=== PATIENT | male | born 1975 | race Caucasian/White ===

== ENCOUNTER 2018-06-03 07:21 | Emergency (ER) | payer OTHER ==
[2018-06-03 07:32] VITALS: RESP 18
[2018-06-03] MEDS ORDERED: HYDROmorphone 1 MG/ML 1 ML SYRINGE IVP STA (07:46)
[2018-06-03] MEDS ORDERED: SODIUM CHLORIDE 0.9% 1,000 ML IV STA (07:46)
[2018-06-03] MEDS ORDERED: ONDANSETRON 4 MG/2 ML VIAL IVP STA (07:46)
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
[2018-06-03 08:17] LABS: Basophils # (A) 0.1 k/uL (0-0.2); Basophils % (A) 1 %; Eosinophils # (A) 0.1 k/uL (0-0.7); Eosinophils % (A) 2 %; HGB 15.1 gm/dL (13.0-17.5); Lymphocytes # (A) 1.6 k/uL (1.0-4.8); Lymphocytes % (A) 19 %; MCH 30.2 pg (25.0-35.0); MCHC 32.9 g/dL (31.0-37.0); MCV 91.8 fL (80.0-100.0); Mean Platelet Volume 8.3; Monocytes # (A) 0.3 k/uL (0-1.0); Monocytes % (A) 4 %; Neutrophils % (A) 74 %; Platelet Count 134 k/uL (150-450); RBC 5.01 m/uL (4.30-5.90); RDW 13.5 % (11.5-15.5)
[2018-06-03 08:20] LABS: Appearance,Urine Clear (Clear); Bilirubin,Urine Negative (Negative); Blood,Urine Negative (Negative); Color,Urine Yellow; Glucose,Urine (UA) Negative (Negative); Ketones,Urine Negative (Negative); Leukocyte Esterase,Urine Negative (Negative); Nitrite,Urine Negative (Negative); Protein,Urine Trace (Negative); Specific Gravity,Urine 1.011 (1.001-1.035); Urobilinogen,Urine <2.0 mg/dL (<2.0)
[2018-06-03 08:26] LABS: INR 1.1 (<1.2); Partial Thromboplastin Time 24.6 sec (22.0-30.0); Prothrombin Time 10.7 sec (9.0-12.0)
[2018-06-03 08:41] LABS: ALT 33 U/L (21-72); AST 23 U/L (17-59); Albumin 4.2 g/dL (3.5-5.0); Alcohol <10 mg/dL; Alkaline Phosphatase 96 U/L (38-126); Anion Gap 8 mmol/L; Blood Urea Nitrogen 14 mg/dL (9-20); Calcium 9.3 mg/dL (8.4-10.2); Carbon Dioxide 25 mmol/L (22-30); Chloride 107 mmol/L (98-107); Glucose 126 mg/dL (74-99); Potassium 3.6 mmol/L (3.5-5.1); Sodium 140 mmol/L (137-145); Total Bilirubin 0.7 mg/dL (0.2-1.3); Total Protein 6.9 g/dL (6.3-8.2)
[2018-06-03 08:48] LABS: Amphetamine Screen,Urine Not Detected (NotDetected); Barbiturate Screen,Urine Not Detected (NotDetected); Benzodiazepines Screen,Urine Not Detected (NotDetected); Cocaine Screen,Urine Not Detected (NotDetected); Methadone Screen, Urine Not Detected (NotDetected); Opiate Screen,Urine Not Detected (NotDetected); Oxycodone Screen, Urine Not Detected (NotDetected); Phencyclidine Screen,Urine Not Detected (NotDetected); Tricyclic Antidepressant,Urine Not Detected (NotDetected); Urn Cannabinoid Scrn Not Detected (NotDetected)
[2018-06-03 09:01] LABS: Creatine Kinase MB 1.1 ng/mL (0.0-2.4); Troponin I 0.02 ng/mL (0.000-0.034)
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
[2018-06-03] MEDS ORDERED: LABETALOL 5 MG/ML VIAL MDV IVP STA ×2 (09:43→10:25)
[2018-06-03] MEDS ORDERED: KETOROLAC 60 MG/2 ML VIAL IVP STA (09:43)
[2018-06-03 10:41] VITALS: BP 154/106; PULSE 77; TEMP 98
== END 2018-06-03 10:47 | disposition home or self-care (01) ==
LOC: EC 07:21
DX: S20.212A Contusion of left front wall of thorax, initial encounter (principal); R10.12 Left upper quadrant pain; R10.32 Left lower quadrant pain; F17.200 Nicotine dependence, unspecified, uncomplicated; Z86.14 Personal history of Methicillin resistant Staphylococcus aureus infection; Z88.6 Allergy status to analgesic agent; Z88.8 Allergy status to other drugs, medicaments and biological substances; Z90.49 Acquired absence of other specified parts of digestive tract; V09.9XXA Pedestrian injured in unspecified transport accident, initial encounter; Y99.0 Civilian activity done for income or pay
CPT/HCPCS: 36415; 93005; 86900; 86901; 80053; 82550; 82553; 84484; 85025; 85610; 85730; 86850; 81003; 80306; 80320; 71260; 74177; 99284; 96374; 96375 ×3; 96376; 96361; J2405; J1885; J1170; Q9967

== ENCOUNTER → 2018-06-09 | Outpatient (CLI) | payer OTHER ==
--- NOTE | 2018-06-09 16:04 | XR ---
EXAMINATION TYPE: XR chest 2V DATE OF EXAM: 06/09/2018 COMPARISON: CT chest 06/03/2018 HISTORY: Cough, smoker TECHNIQUE: Frontal and lateral views of the chest are obtained. FINDINGS: There is no focal air space opacity, pleural effusion, or pneumothorax seen. The cardiac silhouette size is within normal limits. There is bronchial wall thickening. The osseous structures are intact. IMPRESSION: Correlate for bronchitis, reactive airways disease. Follow-up as indicated.
== END | disposition home or self-care (01) ==
LOC: RADXRMAIN 14:42
PROVIDERS: ATTEND Emergency Medicine
DX: S20.20XD Contusion of thorax, unspecified, subsequent encounter (principal)
CPT/HCPCS: 71046

== ENCOUNTER 2018-09-20 18:38 | Inpatient (IN) | payer OTHER ==
[2018-09-20] MEDS ORDERED: SODIUM CHLORIDE 0.9% 1,000 ML IV STA (19:05)
[2018-09-20] MEDS ORDERED: MORPHINE SULFATE 4 MG/ML SYRINGE IV STA (19:05)
[2018-09-20] MEDS ORDERED: ONDANSETRON 4 MG/2 ML VIAL IVP STA (19:05)
[2018-09-20] MEDS ORDERED: LABETALOL 5 MG/ML VIAL MDV IVP STA ×2 (19:06→20:03)
--- NOTE | 2018-09-20 19:09 | ED ---
General Adult HPI - General Source: patient, RN notes reviewed Mode of arrival: ambulatory Limitations: no limitations <Javier Farmer - Last Filed: 09/20/18 20:03> <Pete Gonzalez - Last Filed: 09/20/18 23:00> - General Chief complaint: Headache Stated complaint: hypertension Time Seen by Provider: 09/20/18 18:58 - History of Present Illness Initial comments: Patient is a 43-year-old male presents to the emergency room today with a chief complaint of a headache. Patient states that 6 days ago he was trying to climb into his truck when he slipped hitting his head causing a laceration to his forehead. Patient does admit that he had 8 stitches. He did go to urgent care. He does admit that his blood pressure was elevated that today. He was going back to have stitches removed today. He states is told his blood pressure was elevated again. He's been experiencing headaches since the fall. He describes it as a squeezing sensation located to the front of his head. Currently rates it a 9/10. Patient does admit that he tried aspirin Tylenol at home with little relief of symptoms. Does admit that he's been feeling nauseated over the last 5 days. Patient does admit to photosensitivity. Patient denies any other complaints. Denies any history of hypertension. Patient denies any recent fever, chills, shortness of breath, chest pain, back pain, abdominal pain, vomiting, numbness or tingling, or any other complaints. ( Javier Farmer) - Related Data Home Medications Medication Instructions Recorded Confirmed No Known Home Medications 09/20/18 09/20/18 Allergies Allergy/AdvReac Type Severity Reaction Status Date / Time miconazole Allergy Unknown Verified 09/20/18 18:58 [From Neosporin AF] phenobarbital Allergy Unknown Verified 09/20/18 18:58 phenytoin Allergy Anaphylaxis Verified 09/20/18 18:58 [From Dilantin Extended] ibuprofen AdvReac Abdominal Verified 09/20/18 18:58 Pain SUPER GLUE Allergy Rash/Hives Uncoded 09/20/18 18:58 Review of Systems ROS Other: All systems not noted in ROS Statement are negative. <Javier Farmer - Last Filed: 09/20/18 20:03> ROS Other: All systems not noted in ROS Statement are negative. <Pete Gonzalez - Last Filed: 09/20/18 23:00> ROS Statement: Those systems with pertinent positive or pertinent negative responses have been documented in the HPI. Past Medical History Past Medical History: Hypertension History of Any Multi-Drug Resistant Organisms: MRSA Date of last positivie culture/infection: 2005 MDRO Source:: Right ankle Past Surgical History: Cholecystectomy, Orthopedic Surgery Past Psychological History: No Psychological Hx Reported Smoking Status: Current every day smoker Past Alcohol Use History: Occasional Past Drug Use History: None Reported <Javier Farmer - Last Filed: 09/20/18 20:03> General Exam Limitations: no limitations <Javier Farmer - Last Filed: 09/20/18 20:03> <Pete Gonzalez - Last Filed: 09/20/18 23:00> - General Exam Comments Initial Comments: General: The patient is awake and alert, in no distress, and does not appear acutely ill. Eye: Pupils are equal, round and reactive to light, extra-ocular movements are intact. No nystagmus. There is normal conjunctiva bilaterally. No signs of icterus. Ears, nose, mouth and throat: There are moist mucous membranes and no oral lesions. Neck: The neck is supple. Cardiovascular: There is a regular rate and rhythm. No murmur, rub or gallop is appreciated. Respiratory: Lungs are clear to auscultation, respirations are non-labored, breath sounds are equal. No wheezes, stridor, rales, or rhonchi. Musculoskeletal: Normal ROM, no tenderness. Strength 5/5. Sensation intact. Radial pulses equal bilaterally 2+. Neurological: A&O x 3. CN II-XII intact, There are no obvious motor or sensory deficits. Coordination appears grossly intact. Speech is normal. Skin: Skin is warm and dry and no rashes or lesions are noted. Psychiatric: Cooperative, appropriate mood & affect, normal judgment. (Javier Famrer) Course <Javier Farmer - Last Filed: 09/20/18 20:03> <Pete Gonzalez - Last Filed: 09/20/18 23:00> Vital Signs 09/20/18 09/20/18 09/20/18 18:47 19:51 20:17 Temperature 97.5 F L Pulse Rate 73 67 70 Respiratory 20 17 18 Rate Blood Pressure 216/147 175/115 182/120 O2 Sat by Pulse 98 96 98 Oximetry 09/20/18 09/20/18 09/20/18 20:40 21:53 22:38 Temperature Pulse Rate 79 77 87 Respiratory 18 16 18 Rate Blood Pressure 177/115 173/110 162/101 O2 Sat by Pulse 98 96 97 Oximetry - Reevaluation(s) Reevaluation #1: 09/20/18 20:03 Patient reexamined at this time does admit that headache is improving here in the emergency room. Blood pressure has improved currently 175/115. Patient's CT the head and neck negative for any acute abnormality. Patient's labs been reviewed. Her shins blood pressure be continued to be monitored closely. (Javier Farmer) Medical Decision Making - Lab Data Result diagrams: 09/20/18 19:10 09/20/18 19:10 <Javier Farmer - Last Filed: 09/20/18 20:03> - Lab Data Result diagrams: 09/20/18 19:10 09/20/18 19:10 <Pete Gonzalez - Last Filed: 09/20/18 23:00> - Medical Decision Making patient signed out to me by PA. patient being seen for headache and hypertension. he has no known history of hypertension. labs reviewed, no acute process. Ct head unremarkable. on re-evaluation patient with only minimal improvement of his headache. at this time, will add TSH and troponin onto his lab work. will give reglan, benadryl, decadron, and tylenol for headache. advised observation for the patient for uncontrolled HTN and headache. patient agreeable. he was given hydralazine as his BP is still elevated at 180 systolic after 40mg IV labetalol total. 10:48 PM On reevaluation, the patient states that his headache is best improvement of her headache cocktail. He is still hypertensive at 170/108. Further laboratory evaluation shows evidence of hyperthyroidism. When questioned further, the patient admits to heat intolerance, weight loss, diarrhea. Case discussed with Dr. Brambila who accepts admission for further evaluation of headache and hyperthyroidism. patient agreeable with care plan. (Pete Gonzalez) - Lab Data Lab Results 09/20/18 09/20/18 09/20/18 Range/Units 19:10 19:10 19:10 WBC 10.0 (3.8-10.6) k/uL RBC 5.61 (4.30-5.90) m/uL Hgb 17.0 (13.0-17.5) gm/dL Hct 50.5 (39.0-53.0) % MCV 90.1 (80.0-100.0) fL MCH 30.3 (25.0-35.0) pg MCHC 33.6 (31.0-37.0) g/dL RDW 13.3 (11.5-15.5) % Plt Count 193 (150-450) k/uL Neutrophils % 67 % Lymphocytes % 25 % Monocytes % 4 % Eosinophils % 2 % Basophils % 1 % Neutrophils # 6.7 (1.3-7.7) k/uL Lymphocytes # 2.5 (1.0-4.8) k/uL Monocytes # 0.4 (0-1.0) k/uL Eosinophils # 0.2 (0-0.7) k/uL Basophils # 0.1 (0-0.2) k/uL Sodium 143 (137-145) mmol/L Potassium 4.3 (3.5-5.1) mmol/L Chloride 108 H (98-107) mmol/L Carbon Dioxide 27 (22-30) mmol/L Anion Gap 8 mmol/L BUN 14 (9-20) mg/dL Creatinine 0.86 (0.66-1.25) mg/dL Est GFR (CKD-EPI)AfAm >90 (>60 ml/min/1.73 sqM) Est GFR (CKD-EPI)NonAf >90 (>60 ml/min/1.73 sqM) Glucose 129 H (74-99) mg/dL Calcium 9.6 (8.4-10.2) mg/dL Total Bilirubin 0.7 (0.2-1.3) mg/dL AST 25 (17-59) U/L ALT 36 (21-72) U/L Alkaline Phosphatase 83 (38-126) U/L Troponin I (0.000-0.034) ng/mL Total Protein 7.7 (6.3-8.2) g/dL Albumin 4.5 (3.5-5.0) g/dL TSH 0.390 L (0.465-4.680) mIU/L 09/20/18 Range/Units 19:10 WBC (3.8-10.6) k/uL RBC (4.30-5.90) m/uL Hgb (13.0-17.5) gm/dL Hct (39.0-53.0) % MCV (80.0-100.0) fL MCH (25.0-35.0) pg MCHC (31.0-37.0) g/dL RDW (11.5-15.5) % Plt Count (150-450) k/uL Neutrophils % % Lymphocytes % % Monocytes % % Eosinophils % % Basophils % % Neutrophils # (1.3-7.7) k/uL Lymphocytes # (1.0-4.8) k/uL Monocytes # (0-1.0) k/uL Eosinophils # (0-0.7) k/uL Basophils # (0-0.2) k/uL Sodium (137-145) mmol/L Potassium (3.5-5.1) mmol/L Chloride (98-107) mmol/L Carbon Dioxide (22-30) mmol/L Anion Gap mmol/L BUN (9-20) mg/dL Creatinine (0.66-1.25) mg/dL Est GFR (CKD-EPI)AfAm (>60 ml/min/1.73 sqM) Est GFR (CKD-EPI)NonAf (>60 ml/min/1.73 sqM) Glucose (74-99) mg/dL Calcium (8.4-10.2) mg/dL Total Bilirubin (0.2-1.3) mg/dL AST (17-59) U/L ALT (21-72) U/L Alkaline Phosphatase (38-126) U/L Troponin I <0.012 (0.000-0.034) ng/mL Total Protein (6.3-8.2) g/dL Albumin (3.5-5.0) g/dL TSH (0.465-4.680) mIU/L Disposition <Javier Farmer - Last Filed: 09/20/18 20:03> Is patient prescribed a controlled substance at d/c from ED?: No Decision to Admit Reason: Admit from EC - Out of Hospital Transfer - Req. Specs Out of Hospital Transfer - Requested Specifics: Other Non-Acute <Pete Gonzalez - Last Filed: 09/20/18 23:00> Clinical Impression: Headache, Secondary hypertension, Hyperthyroidism Disposition: ADMITTED IP TO THIS HOSP Condition: Fair Referrals: None,Stated [Primary Care Provider] - 1-2 days
[2018-09-20 19:29] LABS: Basophils # (A) 0.1 k/uL (0-0.2); Basophils % (A) 1 %; Eosinophils # (A) 0.2 k/uL (0-0.7); Eosinophils % (A) 2 %; HCT 50.5 % (39.0-53.0); Lymphocytes # (A) 2.5 k/uL (1.0-4.8); Lymphocytes % (A) 25 %; MCH 30.3 pg (25.0-35.0); MCHC 33.6 g/dL (31.0-37.0); MCV 90.1 fL (80.0-100.0); Mean Platelet Volume 9.1; Monocytes # (A) 0.4 k/uL (0-1.0); Monocytes % (A) 4 %; Neutrophils # (A) 6.7 k/uL (1.3-7.7); Neutrophils % (A) 67 %; Platelet Count 193 k/uL (150-450); RBC 5.61 m/uL (4.30-5.90); RDW 13.3 % (11.5-15.5)
[2018-09-20 19:34] LABS: ALT 36 U/L (21-72); AST 25 U/L (17-59); Albumin 4.5 g/dL (3.5-5.0); Alkaline Phosphatase 83 U/L (38-126); Anion Gap 8 mmol/L; Blood Urea Nitrogen 14 mg/dL (9-20); Calcium 9.6 mg/dL (8.4-10.2); Carbon Dioxide 27 mmol/L (22-30); Chloride 108 mmol/L (98-107); Glucose 129 mg/dL (74-99); Potassium 4.3 mmol/L (3.5-5.1); Sodium 143 mmol/L (137-145); Total Bilirubin 0.7 mg/dL (0.2-1.3); Total Protein 7.7 g/dL (6.3-8.2)
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
[2018-09-20] MEDS ORDERED: diphenhydrAMINE 50 MG/ML 1 ML VIAL IVP STA (20:55)
[2018-09-20] MEDS ORDERED: METOCLOPRAMIDE 5 MG/ML 2 ML VIAL IVP STA (20:55)
[2018-09-20] MEDS ORDERED: DEXAMETHASONE SOD PHOSPHATE 10 MG/ML 1 ML VIAL IV STA (20:55)
[2018-09-20] MEDS ORDERED: ACETAMINOPHEN TAB 500 MG TAB PO STA (20:55)
[2018-09-20] MEDS ORDERED: hydrALAZINE HCL 50 MG TAB PO STA (20:57)
[2018-09-20] MEDS ORDERED: NALOXONE 0.4 MG/ML 1 ML VIAL IV PRN (22:58)
[2018-09-20 22:59] LABS: T4, Free (Free Thyroxine) 1.05 ng/dL (0.78-2.19)
[2018-09-21 00:43] LABS: Glucose,Whole Blood 247 mg/dL (75-99)
[2018-09-21] MEDS ORDERED: cloNIDine HCL 0.2 MG TAB PO PRN (01:00)
[2018-09-21] MEDS ORDERED: ENALAPRILAT 1.25 MG/ML 1 ML VIAL IVP PRN (01:01)
--- NOTE | 2018-09-21 01:15 | P.HPIM ---
History of Present Illness H&P Date: 09/20/18 Chief Complaint: High blood pressure at urgent care 43-year-old male with no significant past medical history. Patient was sent to the ER from urgent care as he was following up with them for removal of stitches. Patient history goes back to 6 days ago when he was completely at his baseline health status, he sustained a mechanical fall when he was trying to climb his truck and hit his head resulted in a laceration over the right eyebrow for which she got stitches. Since then he he's been complaining of frontal headache pounding at times. Not limiting his daily activity. He was told at time of his head injury that he had elevated blood pressure however he was not on any medications for blood pressure. Today when he went to the urgent care for removal of stitches he was told that his blood pressure is kind high, they removed the 8 stitches that they placed. And due to him having headaches feeling nauseated and dizzy they recommended him to go to the ER. He presented to our hospital reporting squeezing frontal headache 10 out of 10 in severity at times as throbbing with nausea but no vomiting. Denies any focal neurologic deficits otherwise denied any chest pain or trouble breathing. This headache was improved after lowering his blood pressure. Computed tomography scan of the head was negative for any acute process. Patient also reported loose bowel movements long history, along with unintentional significant weight loss over the past year or 2 with heat intolerance. However he also reported that his diarrhea/loose bowel movement has been ongoing since cholecystectomy Otherwise patient denies any GI bleeding denies any focal neurologic deficits denies any chest pain or trouble breathing denies any abdominal pain. Review of Systems Pertinent positives as noted in HPI. All other systems were reviewed and are negative Past Medical History Past Medical History: Hypertension History of Any Multi-Drug Resistant Organisms: MRSA Date of last positivie culture/infection: 2005 MDRO Source:: Right ankle Past Surgical History: Cholecystectomy, Orthopedic Surgery Past Psychological History: No Psychological Hx Reported Smoking Status: Current every day smoker Past Alcohol Use History: Occasional Past Drug Use History: None Reported - Past Family History Family Family Medical History: No Reported History Medications and Allergies Home Medications Medication Instructions Recorded Confirmed Type No Known Home Medications 09/20/18 09/20/18 History Allergies Allergy/AdvReac Type Severity Reaction Status Date / Time miconazole Allergy Unknown Verified 09/20/18 18:58 [From Neosporin AF] phenobarbital Allergy Unknown Verified 09/20/18 18:58 phenytoin Allergy Anaphylaxis Verified 09/20/18 18:58 [From Dilantin Extended] ibuprofen AdvReac Abdominal Verified 09/20/18 18:58 Pain SUPER GLUE Allergy Rash/Hives Uncoded 09/20/18 18:58 Physical Exam Vitals: Vital Signs Temp Pulse Resp BP Pulse Ox 09/20/18 23:55 75 15 160/99 95 09/20/18 23:30 97.9 F 87 18 164/100 98 09/20/18 22:38 87 18 162/101 97 09/20/18 21:53 77 16 173/110 96 09/20/18 20:40 79 18 177/115 98 09/20/18 20:17 70 18 182/120 98 09/20/18 19:51 67 17 175/115 96 09/20/18 18:47 97.5 F L 73 20 216/147 98 Intake and Output 09/20/18 09/20/18 09/21/18 14:59 22:59 06:59 Other: Weight 117.027 kg Constitutional: No acute distress, conversant, pleasant Eyes: Anicteric sclerae, moist conjunctiva, no lid-lag Pupils equal round reactive to light ENMT: NC/ laceration over the right eyebrow status post stitches removal Oropharynx clear, no erythema, exudates Neck: Supple, FROM, no masses, or JVD No carotid bruits Palpable thyroid gland Lungs: Clear to auscultation Clear to percussion Normal respiratory effort, no accessory muscle use Cardiovascular: Heart regular in rate and rhythm, No murmurs, gallops, or rubs No peripheral edema Abdominal: Soft Nontender, no guarding, rebound or rigidity Abdomen moving with respiration Normoactive bowel sounds No hepatomegaly, No splenomegaly No palpable mass No abdominal wall hernia noted Skin: Normal temperature, tone, texture, turgor No induration No subcutaneous nodules No rash, lesions No ulcers Extremities: No digital cyanosis No clubbing Pedal pulses intact and symmetrical Radial pulses intact and symmetrical No calf tenderness Psychiatric: Alert and oriented to person, place and time Appropriate affect fair judgment Neuro Muscles Strength 5/5 in all 4 extremities Sensation to light touch grossly present throughout Cranial nerves II-XII grossly intact No focal sensory deficits Lymphatics: no palpable cervical or supraclavicular , or inguinal lymph nodes Results CBC & Chem 7: 09/20/18 19:10 09/20/18 19:10 Labs: Abnormal Lab Results - Last 24 Hours (Table) 09/20/18 09/20/18 Range/Units 19:10 19:10 Chloride 108 H (98-107) mmol/L Glucose 129 H (74-99) mg/dL TSH 0.390 L (0.465-4.680) mIU/L Assessment and Plan Assessment: 43-year-old male with no significant past medical history admitted as an inpatient with anticipated length of stay more than 48 hours due to malignant hypertension with headaches. Patient presented with elevated blood pressure in the 200s range of systolic. Was able to control the blood pressure systolic down to the 170. Patient was also found to have low TSH and he provided clinical scenario suspicious for hyperthyroidism. EKG was unremarkable, CAT scan of the head showed no acute abnormalities. Plan: Malignant hypertension with headaches Goal is to lower map by 25% Introduce amlodipine and chlorthalidone in a.m. For systolic blood pressure higher than 180 or diastolic blood pressure more than 110 will use the following When necessary clonidine every 8 hours When necessary enalapril every 4 hours Check echocardiogram EKG unremarkable Cardiac monitoring Low TSH with symptoms clinically suggestive of hyperthyroidism Free T4 is unremarkable Patient reports that he didn't intolerance, unintentional significant weight loss, and frequent loose bowel movements Check thyroid ultrasound of the neck Outpatient referral to endocrinology DVT prophylaxis heparin subcu 3 times a day Obesity patient counseled for lifestyle modification and weight loss Recent mechanical fall and head injury Computed tomography scan negative Surrogate decision-maker: Sara CODE STATUS: Full code Discussed with: Patient, ER, RN Anticipated discharge: 48-[address]: Home A total of 60 minutes was spent on the care of this complex patient more than 50 % of the time was spent in counseling and care coordination.
[2018-09-21 01:20] VITALS: BMI 32.2
[2018-09-21 06:00] LABS: Basophils % (A) 0 %; Eosinophils % (A) 0 %; HCT 51.4 % (39.0-53.0); HGB 16.9 gm/dL (13.0-17.5); Lymphocytes # (A) 0.7 k/uL (1.0-4.8); Lymphocytes % (A) 11 %; MCH 30.7 pg (25.0-35.0); MCHC 32.9 g/dL (31.0-37.0); MCV 93.3 fL (80.0-100.0); Mean Platelet Volume 9.8; Monocytes # (A) 0.1 k/uL (0-1.0); Monocytes % (A) 1 %; Neutrophils # (A) 5.4 k/uL (1.3-7.7); Neutrophils % (A) 87 %; Platelet Count 143 k/uL (150-450); RDW 13.3 % (11.5-15.5); WBC 6.2 k/uL (3.8-10.6)
[2018-09-21 06:14] LABS: ALT 44 U/L (21-72); AST 34 U/L (17-59); Albumin 4.4 g/dL (3.5-5.0); Alkaline Phosphatase 87 U/L (38-126); Anion Gap 10 mmol/L; Blood Urea Nitrogen 13 mg/dL (9-20); Calcium 9.5 mg/dL (8.4-10.2); Carbon Dioxide 24 mmol/L (22-30); Chloride 108 mmol/L (98-107); Glucose 283 mg/dL (74-99); Potassium 4.6 mmol/L (3.5-5.1); Sodium 142 mmol/L (137-145); Total Bilirubin 0.5 mg/dL (0.2-1.3); Total Protein 7.4 g/dL (6.3-8.2)
[2018-09-21] MEDS ORDERED: LABETALOL 5 MG/ML VIAL MDV IVP PRN (08:17)
[2018-09-21] MEDS: HEPARIN SODIUM,PORCINE 5,000 UNIT/ML 1 ML VIAL SQ SCH ×2 (08:46→16:48)
[2018-09-21] MEDS ORDERED: amLODIPine 5 MG TAB PO SCH (09:00)
[2018-09-21] MEDS ORDERED: LOSARTAN 50 MG TAB PO SCH (09:00)
[2018-09-21] MEDS ORDERED: METOPROLOL TARTRATE 25 MG TAB PO SCH (09:00)
[2018-09-21] MEDS ORDERED: METOPROLOL SUCCINATE (ER) 50 MG TAB.ER.24H PO SCH (09:00)
[2018-09-21] MEDS ORDERED: amLODIPine 10 MG TAB PO SCH (09:00)
[2018-09-21] MEDS ORDERED: CHLORTHALIDONE 25 MG TAB PO SCH (09:00)
--- NOTE | 2018-09-21 09:37 | US ---
EXAMINATION TYPE: US thyroid st tissue head/neck DATE OF EXAM: 09/21/2018 COMPARISON: NONE CLINICAL HISTORY: hyperthyroid. high bp GLAND SIZE: Right Lobe: 5.3 x 1.8 x 1.9 cm Overall Parenchyma: homogenous Left Lobe: 5.5 x 2.0 x 2.0 cm Overall Parenchyma: homogeneous Isthmus Thickness: 0.6 cm NODULES RIGHT: # of nodules measured on right: 0 LEFT: # of nodules measured on left: 1 1. 1.0 X 1.0 x 0.7 cm hyperechoic solid nodule at the lower pole with well-defined margins. This n odule is wider than tall and shows no intranodular vascularity. 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 IMPRESSION: Thyromegaly with a single 1 cm left lobe thyroid nodule.
--- NOTE | 2018-09-21 12:14 | ECHOF ---
Referral Reason:hypertesive urgency MEASUREMENTS -------- HEIGHT: 190.5 cm WEIGHT: 117.0 kg BP: 136/75 RVIDd: 3.6 cm (< 3.3) IVSd: 1.4 cm (0.6 - 1.1) LVIDd: 5.1 cm (3.9 - 5.3) LVPWd: 1.4 cm (0.6 - 1.1) IVSs: 2.1 cm LVIDs: 3.3 cm LVPWs: 2.1 cm LA Diam: 3.5 cm (2.7 - 3.8) LAESV Index (A-L): 34.60 ml/m Ao Diam: 3.4 cm (2.0 - 3.7) AV Cusp: 2.6 cm (1.5 - 2.6) MV EXCURSION: 19.436 mm (> 18.000) MV EF SLOPE: 126 mm/s (70 - 150) EPSS: 1.0 cm MV E Amador: 0.81 m/s MV DecT: 271 ms MV A Amador: 1.05 m/s MV E/A Ratio: 0.77 FINDINGS -------- Sinus rhythm. This was a technically adequate study. The left ventricular size is normal. There is moderate concentric left ventricular hypertrophy. O verall left ventricular systolic function is normal with, an EF between 60 - 65 %. The right ventricle is mildly enlarged. LA is moderately dilated 34-39 ml/m2 The right atrium is normal in size. The aortic valve is trileaflet and appears structurally normal. There is trace mitral regurgitation. The tricuspid valve appears structurally normal. The pulmonic valve was not well visualized. The aortic root size is normal. Normal inferior vena cava with normal inspiratory collapse consistent with estimated right atrial pre ssure of 5 mmHg. There is no pericardial effusion. CONCLUSIONS -------- 1. Sinus rhythm. 2. This was a technically adequate study. 3. The left ventricular size is normal. 4. There is moderate concentric left ventricular hypertrophy. 5. Overall left ventricular systolic function is normal with, an EF between 60 - 65 %. 6. The right ventricle is mildly enlarged. 7. LA is moderately dilated 34-39 ml/m2 8. The right atrium is normal in size. 9. The aortic valve is trileaflet and appears structurally normal. 10. There is trace mitral regurgitation. 11. The tricuspid valve appears structurally normal. 12. The pulmonic valve was not well visualized. 13. The aortic root size is normal. 14. Normal inferior vena cava with normal inspiratory collapse consistent with estimated right atrial pressure of 5 mmHg. 15. There is no pericardial effusion. CAISSON WORKER: Cary Ignacio RDCS
--- NOTE | 2018-09-21 13:34 | P.PN ---
Subjective Progress Note Date: 09/21/18 Principal diagnosis: Management of hypertension Patient seen and examined. No acute events overnight. Patient reports resolution of his headache. No chest pain, shortness of breath or palpitations. He is no complaints this morning. Patient is requesting to go home. Objective - Vital Signs Vital signs: Vital Signs Temp 98.8 F 09/21/18 08:00 Pulse 87 09/21/18 09:00 Resp 18 09/21/18 09:00 BP 185/106 09/21/18 09:00 Pulse Ox 98 09/21/18 09:00 Intake & Output 09/20/18 09/21/18 09/21/18 18:59 06:59 18:59 Intake Total 1000 Balance 1000 Weight 117.027 kg 113.4 kg Intake: Oral 1000 Other: Voiding Method Toilet Toilet Urinal Urinal # Voids 2 1 - Exam General: [non toxic], [no distress], [appears at stated age] Derm: [warm], [dry] Head: [atraumatic], [normocephalic], [symmetric] Eyes: [EOMI], [no lid lag], [anicteric sclera] Mouth: [no lip lesion], [mucus membranes moist] Cardiovascular: [S1S2 reg], [no murmur], [positive DP pulse bilateral] Lungs: [CTA bilateral], [no rhonchi, no rales] , [no accessory muscle use] Abdominal: [soft], [ nontender to palpation], [no guarding], [no appreciable organomegaly] Ext: [no gross muscle atrophy], [no edema], [no contractures] Neuro: [no focal neuro deficits] Psych: [Alert], [oriented], [appropriate affect] - Labs CBC & Chem 7: 09/21/18 04:16 09/21/18 04:16 Labs: Abnormal Lab Results - Last 24 Hours (Table) 09/20/18 09/20/18 09/21/18 Range/Units 19:10 19:10 00:29 Plt Count (150-450) k/uL Lymphocytes # (1.0-4.8) k/uL Chloride 108 H (98-107) mmol/L Glucose 129 H (74-99) mg/dL POC Glucose (mg/dL) 247 H (75-99) mg/dL TSH 0.390 L (0.465-4.680) mIU/L 18 09/21/18 Range/Units 04:16 04:16 Plt Count 143 L (150-450) k/uL Lymphocytes # 0.7 L (1.0-4.8) k/uL Chloride 108 H (98-107) mmol/L Glucose 283 H (74-99) mg/dL POC Glucose (mg/dL) (75-99) mg/dL TSH (0.465-4.680) mIU/L Assessment and Plan Assessment: Assessment and Plan 1. Malignant hypertension: Now resolved. BP 185/106. Continue Amlodipine 5 mg PO BID, Metoprolol 25 mg PO BID as per Cardiology recommendations. Clonidine 0.2 mg PO TID or Enalapril 1.25 mg IV Q4H or Labetalol 10 mg IV Q6H PRN for SBP > 180 or DBP > 110. May be transferred out of MICU. HEART healthy diet. Telemetry monitoring. FU Renal duplex, Cardiology consult 2. Hyperthyroidism: TSH 0.390, FT4 1.05 within normal limits. Subclinical hyperthyroidism. 1.0 cm x 1.0 cm x 0.70 cm nodule seen in the L thyroid. Continue Metoprolol. Will need to be closely monitored with thyroid function tests. FU Endocrinology outPT. 3. DVT Prophylaxis: Heparin 5000 units SUBCUT TID. Patient's being treated for malignant hypertension, blood pressure within normal limits at this time. Cardiology consultation and renal artery duplex pending.
[2018-09-21 16:53] VITALS: RESP 17; TEMP 97.9
[2018-09-21] MEDS ORDERED: INSULIN ASPART 100 UNIT/ML 1 ML 10 ML VIAL SQ SCH (17:30)
[2018-09-21 17:33] LABS: Glucose,Whole Blood 222 mg/dL (75-99)
[2018-09-21 17:42] VITALS: PULSE 89
--- NOTE | 2018-09-21 18:27 | US ---
EXAMINATION TYPE: US renal artery duplex complet DATE OF EXAM: 09/21/2018 COMPARISON: NONE CLINICAL HISTORY: HTN. HTN MEASUREMENTS: RENAL SIZE: Rt Kidney: 11.6 x 5.7 x 5.1cm Lt Kidney: 11.5 x 5.2 x 6.7cm RESISTANCE INDEX Right: 0.62 Left: 0.58 RA/AO RATIO (< 3.5 ) Right: 1.4 Left: 2.0 RA VELOCITY ( < 180 cm/s) Right: 160.7cm/s Left: 232.3cm/s Technical limitations due to large amount of overlying bowel content. Visualized portions of abdomi nal aorta appear unremarkable. Calcification mid right kidney = 0.5cm. Mildly increased velocities le ft proximal renal artery. IMPRESSION: There is low resistance waveform in the arcuate arteries of both kidneys. No evidence of small vessel disease. Elevated left renal artery velocity suggestive of some degree of left renal artery stenosis . No renal atrophy.
[2018-09-21 18:53] VITALS: BP 168/104
--- NOTE | 2018-09-21 18:54 | P.DS ---
Providers Date of admission: 09/20/18 22:58 Expected date of discharge: 09/21/18 Attending physician: Kalli Brambila MD Consults: 09/21/18 00:10 Consult Physician Routine Consulting Provider: Mikel Gao Consult Reason/Comments: hypertensive crisis Do you want consulting provider notified?: Yes, Notify in am Primary care physician: Stated None Hospital Course: Discharge Diagnosis: This is a summary of care and not a discharge summary as patient left AGAINST MEDICAL ADVICE. 1. Hypertensive urgency 2. Minimal renal artery stenosis 3. Hyperglycemia, hemoglobin A1c was pending at time of discharge 4. Tobacco abuse 5. Obesity with BMI 31.2 6. Depressed TSH with normal free T4 Hospital Course: Patient is a 43-year-old male with a history of hypertension and tobacco abuse who presented today urgent care for follow-up with stitches and was noted to have elevated blood pressures. He was then referred to the emergency department. He had a 10 out of 10 headache at the time of presentation and his blood pressure was 216/147. He was started on antihypertensives and admitted to the ICU for malignant hypertension. He was started on oral medications and his blood pressure was slowly improving. He underwent an echocardiogram which was essentially unremarkable ejection fraction of 60-65%, renal Doppler showed minimal left-sided renal stenosis. He developed elevated blood sugars on 09/21 and hemoglobin A1c was ordered but had not yet been drawn. He underwent a thyroid ultrasound which showed no nodule and no lymphadenopathy. His TSH was found a slightly depressed but T4 was normal. His blood pressure was slowly improving. He insisted that he needed to leave due to needing to work and care for his children. We discussed the fact that he is at increased risk for stroke due to his elevated blood pressures. We also discussed the fact that his assessment of possible diabetes is ongoing. He will lose his job if he doesn't return to work tomorrow. He is going to leave AGAINST MEDICAL ADVICE it appears to be the best decision for his family. I elected to send prescriptions to [facility] for Cozaar, metoprolol, and Norvasc. I've also given him the information on [facility] for here on if he has no insurance for follow-up. I did print the results of his renal Doppler and told him he will need repeat scan in approximately 3-6 months to ensure that his stenosis is not worsening. Patient does understand and is fully aware of the risks of leaving. A total of 25 minutes of time were spent preparing this complex discharge summary . Patient Condition at Discharge: Fair Plan - Discharge Summary Discharge Rx Participant: No New Discharge Prescriptions: New amLODIPine [Norvasc] 10 mg PO DAILY #30 tablet Losartan [Cozaar] 50 mg PO DAILY #30 tab Metoprolol Tartrate [Lopressor] 25 mg PO BID #60 tab Discharge Medication List Losartan [Cozaar] 50 mg PO DAILY #30 tab 09/21/18 [Rx] Metoprolol Tartrate [Lopressor] 25 mg PO BID #60 tab 09/21/18 [Rx] amLODIPine [Norvasc] 10 mg PO DAILY #30 tablet 09/21/18 [Rx] Follow up Appointment(s)/Referral(s): None,Stated [Primary Care Provider] - 1-2 days [facility] [NON-STAFF] - 1 Week Patient Instructions/Handouts: Heart Healthy Diet (DC), Hemorrhagic Stroke (DC) , Hypertensive Crisis (DC), Hypertension (DC) Activity/Diet/Wound Care/Special Instructions: Pt has no insurance-may need indigent funds Discharge Disposition: Left Against Medical Advice
--- NOTE | 2018-09-21 21:34 | CONS ---
CONSULTATION HISTORY: This is a 43-year-old gentleman who is known to have hypertension, but has not taken any medications on a regular basis. Does not see a primary care physician. 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 His blood pressure was found to be significantly elevated and he has been admitted to the hospital with diagnosis of accelerated hypertension. At the time of my evaluation, he denies any chest pain. His headache is better. A CT scan did not reveal any significant abnormalities. Blood pressure control is suboptimal. The patient smokes a pack a day. Does not drink alcohol on a regular basis. He has been told he has hypertension, but he has tells me that the pressure was not this elevated. He has no symptoms of chest pain, shortness of breath or palpitations. PAST MEDICAL HISTORY: Known hypertension not on medications, status post cholecystectomy and orthopedic surgery. Recent closed head injury when he hit his head on a truck when he slipped and he has some lacerations. CT scan here did not reveal abnormalities. MEDICATIONS: None. ALLERGIES: PHENOBARBITAL, DILANTIN. PHYSICAL EXAMINATION: Blood pressure is 180/108, pulse rate is about 70 per minute HEENT: Unremarkable. Fundus was not examined by me. NECK: Supple. No JVD. I do not hear a carotid bruit. There is no thyromegaly. HEART: S1 and S2 heard normally without a rub, murmur, or gallop. LUNGS: Clear. ABDOMEN: Soft, nontender. Lower extremities reveal normal pulses. No edema. CENTRAL NERVOUS SYSTEM: Normal. EKG revealed sinus mechanism, no acute changes. IMPRESSION: 1. Accelerated hypertension. 2. Headache which has improved with some closed head injury. No abnormality on CT scan. 3. History of smoking. RECOMMENDATIONS: Patient has been counseled regarding the need to quit smoking. I am going to suggest that we use IV labetalol to control blood pressure that is quite high and use a combination of beta tasia and amlodipine and Cozaar to see if we can regulate his blood pressure control. Once this is done as an outpatient, he can have a stress test. I will also perform an ultrasound of the kidneys as well. I reviewed the thyroid function tests, they are abnormal but there is no evidence suggest any hyperthyroidism because the free T4 is normal. No intervention and no additional workup is necessary in this regard. Thank you very much for the consult. MMODL / IJN: [id number] /
[2018-09-22 04:09] LABS: Hemoglobin A1C 6.1 % (4.0-6.0)
== END 2018-09-21 18:54 | disposition left against medical advice (07) | DRG 305 ==
LOC: EC 18:38 → 2SICU 22:58
PROVIDERS: ADMIT Internal Medicine; ATTEND Internal Medicine
DX: I16.0 Hypertensive urgency (principal); E05.90 Thyrotoxicosis, unspecified without thyrotoxic crisis or storm; E66.9 Obesity, unspecified; Z71.6 Tobacco abuse counseling; F17.210 Nicotine dependence, cigarettes, uncomplicated; Z71.3 Dietary counseling and surveillance; Z68.31 Body mass index [BMI] 31.0-31.9, adult; I15.9 Secondary hypertension, unspecified; S09.90XA Unspecified injury of head, initial encounter; W01.0XXA Fall on same level from slipping, tripping and stumbling without subsequent striking against object, initial encounter; Z79.899 Other long term (current) drug therapy; Z86.14 Personal history of Methicillin resistant Staphylococcus aureus infection; R51 Headache; Z88.6 Allergy status to analgesic agent; Z88.8 Allergy status to other drugs, medicaments and biological substances; I70.1 Atherosclerosis of renal artery
CPT/HCPCS: 36415; 70450; 72125; 76536; 80053; 83036; 84439; 84443; 84484; 85025; 93005; 93306; 93975; 96361; 96374; 96375; 96376; 99285

== ENCOUNTER 2019-07-05 14:37 | Emergency (ER) | payer BC, OTHER ==
[2019-07-05 14:45] VITALS: TEMP 98.1
[2019-07-05 14:59] VITALS: PULSE 80; RESP 16
[2019-07-05] MEDS ORDERED: SODIUM CHLORIDE 0.9% 1,000 ML IV STA ×2 (15:08)
[2019-07-05] MEDS ORDERED: LABETALOL 5 MG/ML VIAL MDV IVP STA (15:09)
[2019-07-05] MEDS ORDERED: MORPHINE SULFATE 4 MG/ML SYRINGE IVP STA ×2 (15:09→16:15)
--- NOTE | 2019-07-05 15:25 | ED ---
Recheck HPI - General Chief Complaint: Recheck/Abnormal Lab/Rx Stated Complaint: arm pain/High BP-[facility] Time Seen by Provider: 07/05/19 14:48 Source: patient, RN notes reviewed, old records reviewed Mode of arrival: ambulatory Limitations: no limitations - History of Present Illness Initial Comments: Bryson is a 44-year-old male with history of hypertension. He presents today for chief complaint of concern for hypertension and left shoulder pain. Patient reports he had an injury at work and when she was pushing with his left arm and felt a sudden pop sensation. He states that he went to [facility] for evaluation they sent him here due to elevated blood pressure and limited range of motion. Patient states he does take antihypertensive medication but normally takes them at night. He states that if he takes them in the morning and then works he starts to feel dizzy and lightheaded. Patient reports that he [facility] year for similar complaints of hypertension. He was told that his hypertension likely stems from an artery stenosis. - Related Data Home Medications Medication Instructions Recorded Confirmed Albuterol Inhaler [Ventolin Hfa 1 - 2 puff INHALATION RT-Q6H PRN 07/05/19 07/05/19 Inhaler] Aspirin EC [Ecotrin Low Dose] 81 mg PO HS 07/05/19 07/05/19 Carvedilol [Coreg] 12.5 mg PO HS 07/05/19 07/05/19 Chlorthalidone 50 mg PO BID 07/05/19 07/05/19 Dicyclomine [Bentyl] 10 mg PO HS 07/05/19 07/05/19 Famotidine 20 mg PO HS 07/05/19 07/05/19 Fenofibrate Nanocrystallized 48 mg PO HS 07/05/19 07/05/19 [Fenofibrate] Hydrocodone/Acetaminophen [[place] 1 tab PO Q8H PRN 07/05/19 07/05/19 5-325] Lisinopril 40 mg PO HS 07/05/19 07/05/19 Ondansetron [Zofran] 4 mg PO TID PRN 07/05/19 07/05/19 Sildenafil Citrate [Sildenafil] 20 mg PO DAILY PRN 07/05/19 07/05/19 amLODIPine [Norvasc] 10 mg PO HS 07/05/19 07/05/19 Previous Rx's Medication Instructions Recorded Naproxen 500 mg PO BID #30 tablet 07/05/19 Allergies Allergy/AdvReac Type Severity Reaction Status Date / Time miconazole Allergy Unknown Verified 07/05/19 16:43 [From Neosporin AF] phenobarbital Allergy Unknown Verified 07/05/19 16:43 phenytoin Allergy Anaphylaxis Verified 07/05/19 16:43 [From Dilantin Extended] ibuprofen AdvReac Abdominal Verified 07/05/19 16:43 Pain SUPER GLUE Allergy Rash/Hives Uncoded 07/05/19 16:43 Review of Systems ROS Statement: Those systems with pertinent positive or pertinent negative responses have been documented in the HPI. ROS Other: All systems not noted in ROS Statement are negative. Past Medical History Past Medical History: Hypertension Additional Past Medical History / Comment(s): pancreatitis, kidney artery blockage History of Any Multi-Drug Resistant Organisms: MRSA Date of last positivie culture/infection: 2005 MDRO Source:: Right ankle Past Surgical History: Cholecystectomy, Orthopedic Surgery Past Psychological History: No Psychological Hx Reported Smoking Status: Current every day smoker Past Alcohol Use History: Occasional Past Drug Use History: None Reported - Past Family History Mother Family Medical History: Coronary Artery Disease (CAD) Father Family Medical History: Coronary Artery Disease (CAD) Family Family Medical History: No Reported History General Exam - General Exam Comments Initial Comments: Is a 44-year-old. Alert and oriented 3. alert Limitations: no limitations General appearance: alert, in no apparent distress Head exam: Present: atraumatic, normocephalic, normal inspection Eye exam: Present: normal appearance, PERRL, EOMI. Absent: scleral icterus, conjunctival injection, periorbital swelling ENT exam: Present: normal exam, mucous membranes moist Neck exam: Present: normal inspection. Absent: tenderness, meningismus, lymphadenopathy Respiratory exam: Present: normal lung sounds bilaterally. Absent: respiratory distress, wheezes, rales, rhonchi, stridor Cardiovascular Exam: Present: regular rate, normal rhythm, normal heart sounds. Absent: systolic murmur, diastolic murmur, rubs, gallop, clicks GI/Abdominal exam: Present: soft, normal bowel sounds. Absent: distended, tenderness, guarding, rebound, rigid Extremities exam: Present: full ROM, normal capillary refill. Absent: normal inspection (Patient has tenderness with any range of motion of the head of his left shoulder. Tenderness over the trapezius and clavicle. Full range of motion noted and wrist and fingers. Less than 2 second capillary refill and normal sensation distally.), tenderness, pedal edema, joint swelling, calf tenderness Back exam: Present: normal inspection Neurological exam: Present: alert, oriented X3, CN II-XII intact Psychiatric exam: Present: normal affect, normal mood Skin exam: Present: warm, dry, intact, normal color. Absent: rash Course Vital Signs 07/05/19 07/05/19 07/05/19 14:40 14:57 16:11 Temperature 98.1 F Pulse Rate 91 80 Respiratory 18 16 Rate Blood Pressure 215/126 198/124 197/122 O2 Sat by Pulse 97 Oximetry 07/05/19 07/05/19 16:53 17:08 Temperature Pulse Rate Respiratory Rate Blood Pressure 133/90 123/74 O2 Sat by Pulse Oximetry Medical Decision Making - Medical Decision Making Patient's 44-year-old male presented to emergency department today with left shoulder injury after a work injury. He has pain with range of motion of the head. I discussed at this time patient's likely suffering from rotator cuff injury. Patient shoulder x-ray shows no acute process. Patient did arrive to emergency Or hypertensive. Patient states he does not take his blood pressure medicine except for at night. Patient received IV pain medicine and hydralazine and labetalol. Blood pressure did return to normal. He is asymptomatic manic in regards to his blood pressure, denying any headache or chest pain or shortness of breath. Patient was informed that he likely needs to be taking his blood pressure medicines during the daytime and not just at night. I discussed the Patient should follow-up with his primary care doctor in regards to hypertension as well as orthopedics in regards to his left shoulder. Patient is agreeable to treatment plan. - Lab Data Result diagrams: 07/05/19 15:18 07/05/19 15:18 Lab Results 07/05/19 07/05/19 07/05/19 Range/Units 15:18 15:18 15:18 WBC 8.1 (3.8-10.6) k/uL RBC 5.36 (4.30-5.90) m/uL Hgb 17.3 (13.0-17.5) gm/dL Hct 47.6 (39.0-53.0) % MCV 88.8 (80.0-100.0) fL MCH 32.4 (25.0-35.0) pg MCHC 36.5 (31.0-37.0) g/dL RDW 13.3 (11.5-15.5) % Plt Count 168 (150-450) k/uL Neutrophils % 69 % Lymphocytes % 21 % Monocytes % 4 % Eosinophils % 2 % Basophils % 3 % Neutrophils # 5.6 (1.3-7.7) k/uL Lymphocytes # 1.7 (1.0-4.8) k/uL Monocytes # 0.3 (0-1.0) k/uL Eosinophils # 0.2 (0-0.7) k/uL Basophils # 0.2 (0-0.2) k/uL Sodium 141 (137-145) mmol/L Potassium 4.3 (3.5-5.1) mmol/L Chloride 108 H (98-107) mmol/L Carbon Dioxide 25 (22-30) mmol/L Anion Gap 8 mmol/L BUN 16 (9-20) mg/dL Creatinine 0.87 (0.66-1.25) mg/dL Est GFR (CKD-EPI)AfAm >90 (>60 ml/min/1.73 sqM) Est GFR (CKD-EPI)NonAf >90 (>60 ml/min/1.73 sqM) Glucose 154 H (74-99) mg/dL Calcium 9.4 (8.4-10.2) mg/dL Magnesium 2.1 (1.6-2.3) mg/dL Total Bilirubin 0.5 (0.2-1.3) mg/dL AST 32 (17-59) U/L ALT 49 (21-72) U/L Alkaline Phosphatase 93 (38-126) U/L Troponin I 0.016 (0.000-0.034) ng/mL Total Protein 7.5 (6.3-8.2) g/dL Albumin 4.5 (3.5-5.0) g/dL 07/06/19 06:49 EKG shows normal sinus rhythm normal EKG. Ventricular rate 91 bpm. VT interval is 186 ms. QS duration is 92 ms. QT QTc is 360/442 ms. - Radiology Data Radiology results: report reviewed Chest x-ray shows evidence of strandy atelectasis but otherwise no acute cardiopulmonary process. Left shoulder x-ray shows no acute fracture dislocation. Disposition Clinical Impression: Hypertension, Rotator cuff disorder Disposition: HOME SELF-CARE Condition: Good Instructions (If sedation given, give patient instructions): Rotator Cuff Injury (ED), Hypertension (ED) Additional Instructions: Please use medication as discussed. Please follow up with family doctor if symptoms have not improved over the next two days. Please return to the e mergency room if your symptoms increase or worsen or for any other concerns. Prescriptions: Naproxen 500 mg PO BID #30 tablet Is patient prescribed a controlled substance at d/c from ED?: No Referrals: Severiano Sanchez MD [Primary Care Provider] - 1-2 days Pablo Collier MD [Medical Doctor] - 1-2 days Time of Disposition: 17:21
[2019-07-05 15:29] LABS: Basophils # (A) 0.2 k/uL (0-0.2); Basophils % (A) 3 %; Eosinophils # (A) 0.2 k/uL (0-0.7); Eosinophils % (A) 2 %; HCT 47.6 % (39.0-53.0); HGB 17.3 gm/dL (13.0-17.5); Lymphocytes # (A) 1.7 k/uL (1.0-4.8); Lymphocytes % (A) 21 %; MCH 32.4 pg (25.0-35.0); MCHC 36.5 g/dL (31.0-37.0); MCV 88.8 fL (80.0-100.0); Monocytes # (A) 0.3 k/uL (0-1.0); Monocytes % (A) 4 %; Neutrophils # (A) 5.6 k/uL (1.3-7.7); Neutrophils % (A) 69 %; Platelet Count 168 k/uL (150-450); RBC 5.36 m/uL (4.30-5.90); RDW 13.3 % (11.5-15.5); WBC 8.1 k/uL (3.8-10.6)
[2019-07-05 15:41] LABS: ALT 49 U/L (21-72); AST 32 U/L (17-59); African American GFR (CKD) >90 (>60 ml/min/1.73 sqM); Albumin 4.5 g/dL (3.5-5.0); Alkaline Phosphatase 93 U/L (38-126); Anion Gap 8 mmol/L; Blood Urea Nitrogen 16 mg/dL (9-20); Calcium 9.4 mg/dL (8.4-10.2); Carbon Dioxide 25 mmol/L (22-30); Chloride 108 mmol/L (98-107); Glucose 154 mg/dL (74-99); Magnesium 2.1 mg/dL (1.6-2.3); Potassium 4.3 mmol/L (3.5-5.1); Sodium 141 mmol/L (137-145); Total Bilirubin 0.5 mg/dL (0.2-1.3); Total Protein 7.5 g/dL (6.3-8.2)
[2019-07-05] MEDS ORDERED: hydrALAZINE HCL 20 MG/ML 1 ML VIAL IVP STA (16:15)
--- NOTE | 2019-07-05 16:19 | XR ---
EXAMINATION TYPE: XR shoulder complete LT DATE OF EXAM: 07/05/2019 COMPARISON: NONE HISTORY: 44-year-old male with left shoulder pain after injury TECHNIQUE: 3 views FINDINGS: AC joint appears intact. Subacromial space is preserved. No acute fracture, subluxation, or dislocati on. IMPRESSION: No acute osseous abnormality seen.
--- NOTE | 2019-07-05 16:20 | XR ---
EXAMINATION TYPE: XR chest 2V DATE OF EXAM: 07/05/2019 COMPARISON: 06/09/2018 HISTORY: 44-year-old male with chest pain TECHNIQUE: PA and lateral views FINDINGS: Heart normal size. Aorta and pulmonary vasculature within normal limits. Some strandy left base atele ctasis. No consolidation or pleural effusion. IMPRESSION: Strandy left basilar atelectasis. No acute process seen.
[2019-07-05 17:09] VITALS: BP 123/74
[2019-07-05] MEDS ORDERED: ACET/COD 300 MG/30 MG STARTER PACK 6 TAB BTL PO STA (17:21)
== END 2019-07-05 17:31 | disposition home or self-care (01) ==
LOC: EC 14:37
DX: M25.812 Other specified joint disorders, left shoulder (principal); I10 Essential (primary) hypertension; F30.9 Manic episode, unspecified; F17.200 Nicotine dependence, unspecified, uncomplicated; Z79.899 Other long term (current) drug therapy; Z79.82 Long term (current) use of aspirin; Z88.3 Allergy status to other anti-infective agents; Z88.6 Allergy status to analgesic agent; Z91.048 Other nonmedicinal substance allergy status; Z82.49 Family history of ischemic heart disease and other diseases of the circulatory system; Z86.14 Personal history of Methicillin resistant Staphylococcus aureus infection
CPT/HCPCS: 99284; 96374; 96375 ×2; 96376; 96361 ×2; 36415; 93005; 80053; 83735; 84484; 85025; 73030; 71046; J2270; J0360

== ENCOUNTER → 2019-07-13 | Outpatient (CLI) | payer OTHER ==
--- NOTE | 2019-07-13 10:53 | XR ---
EXAMINATION TYPE: XR cervical spine comp DATE OF EXAM: 07/13/2019 COMPARISON: None HISTORY: 44-year-old male pain for 2 days TECHNIQUE: 5 views FINDINGS: Moderate uncovertebral joint and facet arthropathy particularly on the left at C6-C7 causing moderate bony neuroforaminal narrowing. The there is mild bony neuroforaminal narrowing on the right at C4-C5 . Remaining neuroforamina are patent. No predental space widening or prevertebral soft tissue swellin g. Mild endplate spondylosis mid to lower cervical spine. The cervicothoracic junction isn't secured by the patient's shoulders and not assessed. Otherwise, cervical alignment is preserved. Normal odont oid view. IMPRESSION: [id number] spondylotic change. This results in a moderate bony neuroforaminal narrowing on the left at C6-C7 and mild on the right at C4-C5. Cervicothoracic junction obscured by the patient's shou lders and not assessed. Remaining alignment is maintained.
== END | disposition home or self-care (01) ==
LOC: RADXRMAIN 10:28
PROVIDERS: ATTEND Emergency Medicine
DX: M25.512 Pain in left shoulder (principal); M47.892 Other spondylosis, cervical region; R20.9 Unspecified disturbances of skin sensation
CPT/HCPCS: 72050

== ENCOUNTER 2019-07-28 16:06 | Emergency (ER) | payer BC, OTHER ==
[2019-07-28 16:14] VITALS: BP 167/99; PULSE 99; RESP 20; TEMP 98
[2019-07-28] MEDS ORDERED: HYDROcodone/APAP 10-325MG 1 EACH TAB PO ONE (16:30)
[2019-07-28] MEDS ORDERED: ORPHENADRINE 30 MG/ML 2 ML VIAL IM STA (16:30)
[2019-07-28] MEDS ORDERED: KETOROLAC 60 MG/2 ML VIAL IM STA (16:30)
--- NOTE | 2019-07-28 16:48 | ED ---
Upper Extremity HPI - General Chief Complaint: Extremity Injury, Upper Stated Complaint: Shoulder pain-[facility] Time Seen by Provider: 07/28/19 16:18 Source: patient, RN notes reviewed, old records reviewed Mode of arrival: ambulatory Limitations: no limitations - History of Present Illness Initial Comments: Patient is a 44-year-old male presents emergency department today for reinjury of his left shoulder. Patient reports he initially had an injury while at work 3 weeks ago. He reports that at that time Patient felt a popping sensation in her shoulder and he is evaluated in the ER. That episode he has rotator cuff injury. He states he has not followed up with orthopedics since that time due to workman's comp issues. Patient states that last night he sneezed felt another pop in his arm is had any pain with range of motion since then. he reports that he has not taken anything for pain. Patient denies any chest pain or neck pain. Patient states that he has pain with range of motion of the shoulder. He reports occasional tingling sensations in shooting pains from the shoulder down his left arm. Patient is right-handed. - Related Data Home Medications Medication Instructions Recorded Confirmed Albuterol Inhaler [Ventolin Hfa 1 - 2 puff INHALATION RT-Q6H PRN 07/05/19 07/05/19 Inhaler] Aspirin EC [Ecotrin Low Dose] 81 mg PO HS 07/05/19 07/05/19 Carvedilol [Coreg] 12.5 mg PO HS 07/05/19 07/05/19 Chlorthalidone 50 mg PO BID 07/05/19 07/05/19 Dicyclomine [Bentyl] 10 mg PO HS 07/05/19 07/05/19 Famotidine 20 mg PO HS 07/05/19 07/05/19 Fenofibrate Nanocrystallized 48 mg PO HS 07/05/19 07/05/19 [Fenofibrate] Hydrocodone/Acetaminophen [[place] 1 tab PO Q8H PRN 07/05/19 07/05/19 5-325] Lisinopril 40 mg PO HS 07/05/19 07/05/19 Ondansetron [Zofran] 4 mg PO TID PRN 07/05/19 07/05/19 Sildenafil Citrate [Sildenafil] 20 mg PO DAILY PRN 07/05/19 07/05/19 amLODIPine [Norvasc] 10 mg PO HS 07/05/19 07/05/19 Previous Rx's Medication Instructions Recorded Naproxen 500 mg PO BID #30 tablet 07/05/19 Ketorolac [Toradol] 10 mg PO TID #12 tab 07/28/19 Orphenadrine [Norflex] 100 mg PO Q12H #12 tablet.er 07/28/19 Allergies Allergy/AdvReac Type Severity Reaction Status Date / Time miconazole Allergy Unknown Verified 07/28/19 16:14 [From Neosporin AF] phenobarbital Allergy Unknown Verified 07/28/19 16:14 phenytoin Allergy Anaphylaxis Verified 07/28/19 16:14 [From Dilantin Extended] ibuprofen AdvReac Abdominal Verified 07/28/19 16:14 Pain SUPER GLUE Allergy Rash/Hives Uncoded 07/28/19 16:14 Review of Systems ROS Statement: Those systems with pertinent positive or pertinent negative responses have been documented in the HPI. ROS Other: All systems not noted in ROS Statement are negative. Past Medical History Past Medical History: Hypertension Additional Past Medical History / Comment(s): pancreatitis, kidney artery blockage History of Any Multi-Drug Resistant Organisms: MRSA Date of last positivie culture/infection: 2005 MDRO Source:: Right ankle Past Surgical History: Cholecystectomy, Orthopedic Surgery Past Psychological History: No Psychological Hx Reported Smoking Status: Current every day smoker Past Alcohol Use History: Occasional Past Drug Use History: None Reported - Past Family History Mother Family Medical History: Coronary Artery Disease (CAD) Father Family Medical History: Coronary Artery Disease (CAD) Family Family Medical History: No Reported History General Exam - General Exam Comments Initial Comments: 44-year-old male. No distress. Limitations: no limitations General appearance: alert, in no apparent distress Head exam: Present: atraumatic, normocephalic, normal inspection Eye exam: Present: normal appearance, PERRL, EOMI. Absent: scleral icterus, conjunctival injection, periorbital swelling ENT exam: Present: normal exam Neck exam: Present: normal inspection. Absent: tenderness, meningismus, lymphadenopathy Respiratory exam: Present: normal lung sounds bilaterally. Absent: respiratory distress, wheezes, rales, rhonchi, stridor Cardiovascular Exam: Present: regular rate, normal rhythm, normal heart sounds. Absent: systolic murmur, diastolic murmur, rubs, gallop, clicks GI/Abdominal exam: Present: soft, normal bowel sounds. Absent: distended, tenderness, guarding, rebound, rigid Extremities exam: Present: normal inspection, full ROM, normal capillary refill, other (Patient has tenderness over the left shoulder. Pain with range of motion reaching above the head. She has normal sensation distally, radial pulses 2+. Full range motion of elbow and hand and wrist.). Absent: tenderness, pedal edema, joint swelling, calf tenderness Back exam: Present: normal inspection Neurological exam: Present: alert, oriented X3, CN II-XII intact Psychiatric exam: Present: normal affect, normal mood Skin exam: Present: warm, dry, intact, normal color. Absent: rash Course Vital Signs 07/28/19 16:08 Temperature 98.0 F Pulse Rate 99 Respiratory 20 Rate Blood Pressure 167/99 O2 Sat by Pulse 99 Oximetry Medical Decision Making - Medical Decision Making This is a 44-year-old male presents with a sharp pain in his left shoulder with any range of motion of the head. Patient reports he had a work injury 3 weeks ago. Yesterday he sneezing causes her reinjury. Patient at this time is some tenderness over the shoulder joint, and pain with any range of motion above the head. He has no other significant physical complaints at this time. He is given IM Toradol and Norflex and one [place] the ER. X-ray of the shoulders negative for any acute process. Discussed the Patient is likely suffering from rotator cuff distal function and needs follow-up with [facility]. Discussed the importance of or throat consult and MRI. Patient is agreeable to this plan. Patient was advised to improve his shoulder sling but I advised against full immobilization as that can cause frozen shoulder syndrome. Patient is agreeable to treatment plan will comply. - Radiology Data Radiology results: report reviewed Negative a left shoulder exam. Joint Spaces are normal. No pathologic calcifications. Disposition Clinical Impression: Rotator cuff disorder Disposition: HOME SELF-CARE Condition: Good Instructions (If sedation given, give patient instructions): Rotator Cuff Injury (ED) Additional Instructions: Please use medication as discussed. Please follow up with family doctor if symptoms have not improved over the next two days. Please return to the emergency room if your symptoms increase or worsen or for any other concerns. Prescriptions: Orphenadrine [Norflex] 100 mg PO Q12H #12 tablet.er Ketorolac [Toradol] 10 mg PO TID #12 tab Is patient prescribed a controlled substance at d/c from ED?: No Referrals: None,Stated [Primary Care Provider] - 1-2 days Johnny Gibbs MD [STAFF PHYSICIAN] - 1-2 days Time of Disposition: 17:08
--- NOTE | 2019-07-28 17:00 | XR ---
EXAMINATION TYPE: XR shoulder complete LT DATE OF EXAM: 07/28/2019 COMPARISON: 07/05/2019 HISTORY: Shoulder pain TECHNIQUE: 3 views. FINDINGS: There is no fracture nor dislocation. Joint spaces are fairly normal. There are no pathologic calcifi cations. IMPRESSION: Negative left shoulder exam.
[2019-07-28] MEDS ORDERED: ACET/COD 300 MG/30 MG STARTER PACK 6 TAB BTL PO STA (17:09)
== END 2019-07-28 17:21 | disposition home or self-care (01) ==
LOC: EC 16:06
DX: M75.102 Unspecified rotator cuff tear or rupture of left shoulder, not specified as traumatic (principal); M25.512 Pain in left shoulder; R20.2 Paresthesia of skin; I10 Essential (primary) hypertension; F17.200 Nicotine dependence, unspecified, uncomplicated; Z88.3 Allergy status to other anti-infective agents; Z88.6 Allergy status to analgesic agent; Z88.8 Allergy status to other drugs, medicaments and biological substances; Z91.048 Other nonmedicinal substance allergy status; Z79.82 Long term (current) use of aspirin; Z79.899 Other long term (current) drug therapy; Z86.14 Personal history of Methicillin resistant Staphylococcus aureus infection; Z87.19 Personal history of other diseases of the digestive system; X58.XXXA Exposure to other specified factors, initial encounter; Y92.69 Other specified industrial and construction area as the place of occurrence of the external cause; Y99.0 Civilian activity done for income or pay
CPT/HCPCS: 73030; 99284; 96372 ×2; J2360; J1885

== ENCOUNTER 2021-05-11 13:19 | Emergency (ER) | payer BC, OTHER ==
[2021-05-11] MEDS ORDERED: SODIUM CHLORIDE 0.9% 1,000 ML IV STA (14:04)
--- NOTE | 2021-05-11 14:10 | ED ---
Dizziness HPI - General Chief Complaint: Dizziness Stated Complaint: dizziness Source: patient, RN notes reviewed, old records reviewed Mode of arrival: wheelchair Limitations: no limitations - History of Present Illness Initial Comments: 46-year-old white male, well-appearing and alert and oriented 4, presents to the emergency room with complaints of dizziness for 3 weeks. Patient states that he was seen at [facility] 2 weeks ago and admitted for 2 days for similar symptoms. He states while there they thought he may have been having seizures and put him on Keppra. He states he has been seeing a neurologist there named Dr. Choi but he could not get into the office today and they told him to go to an emergency room. Patient states that he is staying in this area with his girlfriend but all of his care has been at [facility]. He has a scheduled EEG next week. He states he is here today because of the worsening dizziness and headaches. States the pain is 8 out of 10. There is nothing that makes it better or worse. He denies any fevers, nausea vomiting or diarrhea. He states he has not sustained any trauma to the head. He denies any visual changes MD Complaint: dizziness -: week(s) (3) Timing: intermittent History of Same: Yes History of Trauma: No Improves With: nothing Worsens With: nothing - Related Data Home Medications Medication Instructions Recorded Confirmed amLODIPine [Norvasc] 10 mg PO DAILY@1200 07/05/19 05/11/21 Albuterol Sulfate [Proair Hfa] 2 puff INHALATION RT-Q6H PRN 05/11/21 05/11/21 Amoxic-Pot Clav 875-125Mg 1 tab PO Q12HR 05/11/21 05/11/21 [Augmentin 875-125] Chlorthalidone [Hygroton] 25 mg PO DAILY@1200 05/11/21 05/11/21 Ergocalciferol [Vitamin D2 (1250 1,250 mcg PO MO 05/11/21 05/11/21 Mcg = 98056 Iu)] Fenofibrate,Micronized 134 mg PO DAILY@1200 05/11/21 05/11/21 [Fenofibrate] HYDROcodone/APAP 7.5-325MG [Henriette 1 tab PO Q4H PRN 08/06/21 08/06/21 7.5-325] Insulin Glargine,Hum.rec.anlog 70 unit SQ HS 05/11/21 05/11/21 [Lantus Solostar] Insulin Lispro [humaLOG Kwikpen] 20 unit SQ AC-TID 05/11/21 05/11/21 Lipase/Protease/Amylase [Guillermo Berry 12,000 units PO TID 05/11/21 05/11/21 6,000 Units Capsule] Losartan Potassium 100 mg PO DAILY@1200 05/11/21 05/11/21 Methocarbamol [Robaxin-750] 750 mg PO TID 05/11/21 05/11/21 Metoprolol Succinate 200 mg PO BID 05/11/21 05/11/21 Pantoprazole Sodium [Protonix] 40 mg PO DAILY 05/11/21 05/11/21 Prasugrel [Effient] 10 mg PO DAILY@1200 05/11/21 05/11/21 Pregabalin [Lyrica] 50 mg PO BID 05/11/21 05/11/21 Rosuvastatin [Crestor] 20 mg PO HS 05/11/21 05/11/21 Spironolactone 50 mg PO DAILY@1200 05/11/21 05/11/21 hydrALAZINE HCL [Apresoline] 50 mg PO BID 05/11/21 05/11/21 levETIRAcetam [Keppra] 250 mg PO Q12HR 05/11/21 05/11/21 levETIRAcetam [Keppra] 500 mg PO Q12HR 05/11/21 05/11/21 traZODone HCL [Desyrel] 100 mg PO HS 05/11/21 05/11/21 Previous Rx's Medication Instructions Recorded Metoclopramide [Reglan] 10 mg PO TID PRN #15 tab 05/11/21 Allergies Allergy/AdvReac Type Severity Reaction Status Date / Time miconazole Allergy Unknown Verified 05/11/21 15:51 [From Neosporin AF] phenobarbital Allergy Unknown Verified 05/11/21 15:51 phenytoin Allergy Anaphylaxis Verified 05/11/21 15:51 [From Dilantin Extended] ibuprofen AdvReac Abdominal Verified 05/11/21 15:51 Pain SUPER GLUE Allergy Rash/Hives Uncoded 05/11/21 13:19 Review of Systems ROS Statement: Those systems with pertinent positive or pertinent negative responses have been documented in the HPI. ROS Other: All systems not noted in ROS Statement are negative. Past Medical History Past Medical History: Hypertension Additional Past Medical History / Comment(s): pancreatitis, kidney artery bloc kage History of Any Multi-Drug Resistant Organisms: MRSA Date of last positivie culture/infection: 2005 MDRO Source:: Right ankle Past Surgical History: Cholecystectomy, Orthopedic Surgery Past Psychological History: No Psychological Hx Reported Smoking Status: Former smoker Past Alcohol Use History: Occasional Past Drug Use History: None Reported - Past Family History Mother Family Medical History: Coronary Artery Disease (CAD) Father Family Medical History: Coronary Artery Disease (CAD) Family Family Medical History: No Reported History General Exam Limitations: no limitations General appearance: alert, in no apparent distress Head exam: Present: atraumatic, normocephalic, normal inspection Eye exam: Present: normal appearance, PERRL, EOMI. Absent: scleral icterus, conjunctival injection, periorbital swelling ENT exam: Present: normal exam, normal oropharynx, mucous membranes moist Neck exam: Present: normal inspection, tenderness (Right side lateral neck), full ROM. Absent: meningismus, lymphadenopathy, thyromegaly Respiratory exam: Present: normal lung sounds bilaterally. Absent: respiratory distress, wheezes, rales, rhonchi, stridor, chest wall tenderness, accessory muscle use, decreased breath sounds, prolonged expiratory Cardiovascular Exam: Present: regular rate, normal rhythm, normal heart sounds. Absent: systolic murmur, diastolic murmur, rubs, gallop, clicks GI/Abdominal exam: Present: soft, normal bowel sounds. Absent: distended, tenderness, guarding, rebound, rigid Extremities exam: Present: normal inspection, full ROM, normal capillary refill. Absent: tenderness, pedal edema, joint swelling, calf tenderness Back exam: Present: full ROM. Absent: tenderness, CVA tenderness (R), CVA tenderness (L), muscle spasm, paraspinal tenderness, vertebral tenderness Neurological exam: Present: alert, oriented X3, CN II-XII intact Psychiatric exam: Present: normal affect, normal mood Skin exam: Present: warm, dry, intact, normal color. Absent: rash, cyanosis, diaphoretic, erythema, petechiae, pallor, mottled Course Vital Signs 05/11/21 05/11/21 05/11/21 13:20 14:19 15:25 Temperature 98.0 F Pulse Rate 62 60 63 Respiratory 16 22 22 Rate Blood Pressure 120/79 115/60 106/60 O2 Sat by Pulse 97 98 98 Oximetry 05/11/21 05/11/21 05/11/21 17:00 18:00 18:15 Temperature 98.3 F Pulse Rate 61 63 Respiratory 22 22 Rate Blood Pressure 118/80 114/86 O2 Sat by Pulse 98 Oximetry - Reevaluation(s) Reevaluation #1: 05/11/21 16:56 This patient's significant other at the bedside states that patient has been worked up at [facility] and has been told to follow up with neurology. He does have an appointment on May 24 and again on the for further testing. She states in the past she's gotten relief with Reglan and Toradol and Benadryl. He has had this persistent dizziness and headaches for the past 3 weeks and since he lives with her out here is why they came to our ER. Patient is frustrated with having to wait for his testing and wants relief now. Time: 16:56 EKG Findings - EKG Results: EKG: sinus rhythm (Ventricular rate of 58, MD interval of 0.214, QRS of 0.112, QTC of 0.414) Medical Decision Making - Medical Decision Making The patient's glucose is 218 with 2+ glucose in his urine there is no other abnormalities in his labs. Chest x-ray shows no acute cardiopulmonary process. EKG is sinus rhythm with no ST elevation. Troponin is negative at 0.012. Patient has had a CT done at [facility] and has a neurologist Dr. Choi with a pending appointment on May 24 and May 30 for EEG and continuation of care. Spoke at length to patient and his significant other regarding the importance of continuity of care. Patient is agreeable to being discharged home. Directed to continue his medications as previously prescribed. He is feeling better after the Benadryl, Toradol and Reglan which is significant other states has helped him in the past. He states he is ready to be discharged home with follow-up with his own doctors. His girlfriend is at the bedside assures that she will have patient follow up and keep his appointments as scheduled. Case was discussed with Dr. Seaman. Patient was given a prescription for the Reglan and directed take that along with Benadryl for his headaches until seen by his primary and neurologist. - Lab Data Result diagrams: 05/11/21 14:09 05/11/21 14:09 Lab Results 05/11/21 05/11/21 05/11/21 Range/Units 14:09 14:09 14:09 WBC 12.3 H (3.8-10.6) k/uL RBC 4.85 (4.30-5.90) m/uL Hgb 14.7 (13.0-17.5) gm/dL Hct 44.4 (39.0-53.0) % MCV 91.5 (80.0-100.0) fL MCH 30.3 (25.0-35.0) pg MCHC 33.1 (31.0-37.0) g/dL RDW 13.7 (11.5-15.5) % Plt Count 183 (150-450) k/uL MPV 10.3 Neutrophils % 71 % Lymphocytes % 23 % Monocytes % 4 % Eosinophils % 1 % Basophils % 1 % Neutrophils # 8.7 H (1.3-7.7) k/uL Lymphocytes # 2.8 (1.0-4.8) k/uL Monocytes # 0.4 (0-1.0) k/uL Eosinophils # 0.2 (0-0.7) k/uL Basophils # 0.1 (0-0.2) k/uL Sodium 137 (137-145) mmol/L Potassium 4.0 (3.5-5.1) mmol/L Chloride 105 (98-107) mmol/L Carbon Dioxide 24 (22-30) mmol/L Anion Gap 8 mmol/L BUN 25 H (9-20) mg/dL Creatinine 1.04 (0.66-1.25) mg/dL Est GFR (CKD-EPI)AfAm >90 (>60 ml/min/1.73 sqM) Est GFR (CKD-EPI)NonAf 86 (>60 ml/min/1.73 sqM) Glucose 218 H (74-99) mg/dL Calcium 9.6 (8.4-10.2) mg/dL Total Bilirubin 0.5 (0.2-1.3) mg/dL AST 22 (17-59) U/L ALT 23 (4-49) U/L Alkaline Phosphatase 56 (38-126) U/L Total Protein 6.6 (6.3-8.2) g/dL Albumin 4.3 (3.5-5.0) g/dL Urine Color Yellow Urine Appearance Clear (Clear) Urine pH 5.5 (5.0-8.0) Ur Specific Jewell 1.009 (1.001-1.035) Urine Protein Negative (Negative) Urine Glucose (UA) 2+ H (Negative) Urine Ketones Negative (Negative) Urine Blood Negative (Negative) Urine Nitrite Negative (Negative) Urine Bilirubin Negative (Negative) Urine Urobilinogen <2.0 (<2.0) mg/dL Ur Leukocyte Esterase Negative (Negative) Disposition Clinical Impression: Dizziness, Headache Disposition: HOME SELF-CARE Condition: Good Instructions (If sedation given, give patient instructions): Acute Headache (ED), Dizziness (ED) Additional Instructions: Continue your medications as prescribed, follow-up with the primary care doctor and your neurologist as I rescheduled. Return if any worsening symptoms. Prescriptions: Metoclopramide [Reglan] 10 mg PO TID PRN #15 tab PRN Reason: GERD Is patient prescribed a controlled substance at d/c from ED?: No Referrals: Nonstaff,Physician [REFERRING] - 1-2 days Time of Disposition: 18:07
[2021-05-11] MEDS ORDERED: MECLIZINE 12.5 MG TAB PO STA (14:12)
[2021-05-11 14:22] VITALS: RESP 22
[2021-05-11 14:28] LABS: Basophils # (A) 0.1 k/uL (0-0.2); Basophils % (A) 1 %; Eosinophils # (A) 0.2 k/uL (0-0.7); Eosinophils % (A) 1 %; HCT 44.4 % (39.0-53.0); HGB 14.7 gm/dL (13.0-17.5); Lymphocytes # (A) 2.8 k/uL (1.0-4.8); Lymphocytes % (A) 23 %; MCH 30.3 pg (25.0-35.0); MCHC 33.1 g/dL (31.0-37.0); MCV 91.5 fL (80.0-100.0); Mean Platelet Volume 10.3; Monocytes # (A) 0.4 k/uL (0-1.0); Monocytes % (A) 4 %; Neutrophils # (A) 8.7 k/uL (1.3-7.7); Neutrophils % (A) 71 %; Platelet Count 183 k/uL (150-450); RBC 4.85 m/uL (4.30-5.90); RDW 13.7 % (11.5-15.5); WBC 12.3 k/uL (3.8-10.6)
[2021-05-11 14:37] LABS: ALT 23 U/L (4-49); AST 22 U/L (17-59); African American GFR (CKD) >90 (>60 ml/min/1.73 sqM); Albumin 4.3 g/dL (3.5-5.0); Alkaline Phosphatase 56 U/L (38-126); Anion Gap 8 mmol/L; Blood Urea Nitrogen 25 mg/dL (9-20); Calcium 9.6 mg/dL (8.4-10.2); Carbon Dioxide 24 mmol/L (22-30); Chloride 105 mmol/L (98-107); Glucose 218 mg/dL (74-99); Non-African American GFR(CKD) 86 (>60 ml/min/1.73 sqM); Sodium 137 mmol/L (137-145); Total Bilirubin 0.5 mg/dL (0.2-1.3); Total Protein 6.6 g/dL (6.3-8.2)
--- NOTE | 2021-05-11 14:38 | XR ---
EXAMINATION TYPE: XR chest 2V DATE OF EXAM: 05/11/2021 COMPARISON: 07/05/2019 TECHNIQUE: PA and lateral views submitted. HISTORY: Dizziness FINDINGS: The lungs are clear and there is no pneumothorax, pleural effusion, or focal pneumonia. Heart size is prominent. No overt failure. Hypertrophic and degenerative changes of the spine. IMPRESSION: 1. No acute process.
[2021-05-11 15:26] VITALS: PULSE 63
[2021-05-11] MEDS ORDERED: KETOROLAC 15 MG/ML 1 ML VIAL IVP STA (16:55)
[2021-05-11] MEDS ORDERED: diphenhydrAMINE 50 MG/ML 1 ML VIAL IVP STA (16:55)
[2021-05-11] MEDS ORDERED: METOCLOPRAMIDE 5 MG/ML 2 ML VIAL IVP STA (16:55)
[2021-05-11 16:58] LABS: Appearance,Urine Clear (Clear); Bilirubin,Urine Negative (Negative); Blood,Urine Negative (Negative); Color,Urine Yellow; Glucose,Urine (UA) 2+ (Negative); Ketones,Urine Negative (Negative); Leukocyte Esterase,Urine Negative (Negative); Nitrite,Urine Negative (Negative); PH, Urine 5.5 (5.0-8.0); Protein,Urine Negative (Negative); Specific Gravity,Urine 1.009 (1.001-1.035); Urobilinogen,Urine <2.0 mg/dL (<2.0)
[2021-05-11 18:02] VITALS: BP 114/86
[2021-05-11 18:21] VITALS: TEMP 98.3
== END 2021-05-11 18:15 | disposition home or self-care (01) ==
LOC: EC 13:19
DX: R42 Dizziness and giddiness (principal); R51.9 Headache, unspecified; I10 Essential (primary) hypertension; Z87.891 Personal history of nicotine dependence; Z88.8 Allergy status to other drugs, medicaments and biological substances; Z88.6 Allergy status to analgesic agent; Z88.1 Allergy status to other antibiotic agents; Z91.048 Other nonmedicinal substance allergy status; Z79.899 Other long term (current) drug therapy
CPT/HCPCS: 36415; 93005; 80053; 85025; 81003; 71046; 99284; 96374; 96375; 96361; J1200; J2765; J1885